=== PATIENT | male | born 1980 | race Caucasian/White ===

== ENCOUNTER 2016-08-13 16:04 | Emergency (ER) | payer OTHER ==
[2016-08-13 16:10] VITALS: TEMP 98; BMI 25.7
--- NOTE | 2016-08-13 16:24 | PDOC ---
History of Present Illness - General Chief Complaint: Pain Stated Complaint: R/O KIDNEY STONES Time Seen by Provider: 08/13/16 16:23 Past History - Past Medical History Allergies/Adverse Reactions: Allergies Allergy/AdvReac Type Severity Reaction Status Date / Time No Known Allergies Allergy Verified 08/13/16 16:06 Kidney Stones: Yes - Psycho/Social/Smoking Cessation Hx Anxiety: No Suicidal Ideation: No Smoking History: Never smoked Have you smoked in the past 12 months: No Information on smoking cessation initiated: No Hx Alcohol Use: No Drug/Substance Use Hx: No Substance Use Type: None *Physical Exam - Vital Signs Last Vital Signs Temp Pulse Resp BP Pulse Ox 98.0 F 59 L 18 153/96 100 08/13/16 16:08 08/13/16 16:08 08/13/16 16:08 08/13/16 16:08 08/13/16 16:08
--- NOTE | 2016-08-13 16:39 | PDOC ---
History of Present Illness <Zaid Klein - Last Filed: 08/13/16 21:46> - General History Source: Patient Exam Limitations: No Limitations - History of Present Illness Initial Comments: 08/13/16 17:10 The patient is a 36 year old male, with a significant past medical history of kidney stones, who presents to the emergency department complaining of approximately 3-4 months of intermittent right sided flank pain. The patient reports the pain was the worst it has ever been last night. He describes his pain last night as a burning sensation and rated it as a 10/10. The patient currently rates his pain a 4/10. He reports associated dysuria and mild urine retention, but denies hematuria, frequency, urgency, or discharge. He reports fatigue, fever, chills, nausea, and vomiting, but denies headache or dizziness. Per previous report, patient had a CT done on 08/06/16, which revealed an 11 mm proximal ureteral calculus with moderate hydronephrosis. Patient reports he was recommended a Lithotripsy procedure and prescribed medications for but does not remember the name of. He reports mild epigastric pain, but denies any diarrhea, constipation, melena, or hematochezia. He denies any chest pain, shortness of breath, diaphoresis, or palpitations. He denies any recent travel or sick contacts. Allergies: NKDA Past Surgical History: None reported Social History: Non smoker. No ETOH or drug use. PCP: Officer <Kt Koch - Last Filed: 08/13/16 22:21> - General Chief Complaint: Pain Stated Complaint: R/O KIDNEY STONES Time Seen by Provider: 08/13/16 16:23 Past History - Past Medical History Kidney Stones: Yes - Psycho/Social/Smoking Cessation Hx Anxiety: No Suicidal Ideation: No Smoking History: Never smoked Have you smoked in the past 12 months: No Information on smoking cessation initiated: No Hx Alcohol Use: No Drug/Substance Use Hx: No Substance Use Type: None <Zaid Klein - Last Filed: 08/13/16 21:46> <Kt Koch - Last Filed: 08/13/16 22:21> - Past Medical History Allergies/Adverse Reactions: Allergies Allergy/AdvReac Type Severity Reaction Status Date / Time No Known Allergies Allergy Verified 08/13/16 16:06 Home Medications: Ambulatory Orders Levofloxacin [Levaquin -] 500 mg PO DAILY #7 tablet 08/13/16 Naproxen [Naprosyn -] 500 mg PO BID 08/13/16 Oxycodone HCl/Acetaminophen [Percocet 5-325 mg Tablet] 1 tab PO Q6H #20 tablet MDD 4 08/13/16 Review of Systems - Review of Systems Able to Perform ROS?: Yes Comments:: 08/13/16 17:11 CONSTITUTIONAL: Yes: +fever, +chills, +fatigue. EYES: No visual changes ENT: No ear pain, no sore throat CARDIOVASCULAR: No chest pain, no palpitations RESPIRATORY: No cough, no SOB GI: Yes: +epigastric pain, + nausea, +vomiting. No constipation, no diarrhea, no melena, no hematochezia GENITOURINARY: Yes: +right sided flank pain, +dysuria. No frequency, no hematuria MUSKULOSKELETAL: Yes: +right sided flank pain. No joint pain, no myalgias SKIN: No rash NEURO: No headache <Kt Koch - Last Filed: 08/13/16 22:21> *Physical Exam - Vital Signs Last Vital Signs Temp Pulse Resp BP Pulse Ox 98.0 F 59 L 18 153/96 100 08/13/16 16:08 08/13/16 16:08 08/13/16 16:08 08/13/16 16:08 08/13/16 16:08 <Zaid Klein - Last Filed: 08/13/16 21:46> - Vital Signs Last Vital Signs Temp Pulse Resp BP Pulse Ox 98.0 F 59 L 18 153/96 100 08/13/16 16:08 08/13/16 16:08 08/13/16 16:08 08/13/16 16:08 08/13/16 16:08 - Physical Exam Comments: 08/13/16 16:40 CONSTITUTIONAL: Well-appearing; well-nourished; in no apparent distress HEAD: Normocephalic; atraumatic EYES: PERRL; EOM intact ENMT: External appears normal; normal oropharynx NECK: Supple; non-tender; no cervical lymphadenopathy CARD: Normal S1, S2; no murmurs, rubs, or gallops RESP: Normal chest excursion with respiration; breath sounds clear and equal bilaterally; no wheezes, rhonchi, or rales ABD: Soft, non-distended; non-tender; no palpable organomegaly, no palpable hernias BACK: +Right CVA tenderness. EXT: Normal ROM in all four extremities; non-tender to palpation; distal pulses intact SKIN: Warm, dry, no rash NEURO: No focal neurological deficiencies. <Kt Koch - Last Filed: 08/13/16 22:21> ED Treatment Course - LABORATORY CBC & Chemistry Diagram: 08/13/16 17:25 08/13/16 17:25 <Zaid Klein - Last Filed: 08/13/16 21:46> - LABORATORY CBC & Chemistry Diagram: 08/13/16 17:25 08/13/16 17:25 - RADIOLOGY Radiograph Interpretation: 08/13/16 20:19 EXAM: Renal US INTERPRETED BY: Dr. Drake REVIEWED BY: Dr. Klein IMPRESSION: The kidneys are normal in size and echogenicity. There is moderate right hydronephrosis The left renal collecting system is decompressed No renal masses or calcifications visualized in either kidney. Normal vascularity in both kidneys on color Doppler evaluation The urinary bladder was not assessed <Kt Koch - Last Filed: 08/13/16 22:21> Medical Decision Making - Medical Decision Making 08/13/16 19:10 Patient is a well-appearing 36-year-old male who presents with atraumatic right flank pain, nausea, several episodes of nonbloody nonbilious vomiting, tactile fevers, chills with associated dysuria. In the ER, patient is awake and alert, afebrile, nontoxic appearing, with mild right CVA tenderness to percussion. CBC is within normal limit without evidence of leukocytosis. CMP reveals a normal renal function. Urinalysis reveals no evidence of hematuria or pyuria at this time. Right kidney ultrasound reveals significant hydronephrosis and proximal ureteral stone. We'll consult urology. Will reassess. 08/13/16 21:47 Patient reassessed. Patient is resting comfortably, symptom-free, tolerates by mouth. CBC/CMP/UA within normal limit. There is no evidence of leukocytosis or pyuria. Patient's afebrile and normotensive. Right kidney ultrasound shows normal echogenicity and moderate hydronephrosis. A discussed the case with Dr. Carmen of urology. Given the patient is well-appearing, tolerates by mouth, is pain free, without evidence of sepsis, he can be discharged with by mouth pain meds, by mouth antibiotics and prompt outpatient follow-up for lithotripsy. I discussed the plan of care with the patient and he is expressed understanding. <Zaid Klein - Last Filed: 08/13/16 21:46> - Medical Decision Making 08/13/16 20:19 First call placed to Dr. Mcduffie at 20:19. Awaiting call back. Second call placed to Dr. Mcduffie. at 20:59. Awaiting call back. Case discussed with Dr. Mcduffie at 21:10. <Kt Koch - Last Filed: 08/13/16 22:21> *DC/Admit/Observation/Transfer - Attestations Physician Attestion: 08/13/16 19:10 The documentation was prepared by the scribe under my direct supervision. I have reviewed the documentation which correctly represents the findings, medical decision-making and critical action taken by me. <Zaid Klein - Last Filed: 08/13/16 21:46> - Attestations Scribe Attestion: 08/13/16 17:11 Documentation prepared by Kt Koch, acting as medical administrator for Zaid Klein MD. <Kt Koch - Last Filed: 08/13/16 22:21> Diagnosis at time of Disposition: Kidney stone on right side - Discharge Dispostion Disposition: HOME Condition at time of disposition: Stable - Prescriptions Prescriptions: Levofloxacin [Levaquin -] 500 mg PO DAILY #7 tablet Oxycodone HCl/Acetaminophen [Percocet 5-325 mg Tablet] 1 tab PO Q6H #20 tablet MDD 4 - Referrals Referrals: Damaso Mcduffie MD., MD [Staff Physician] - - Patient Instructions Printed Discharge Instructions: DI for Kidney Stones
[2016-08-13 16:56] LABS: URINE APPEARANCE CLEAR; URINE BILIRUBIN NEGATIVE (NEGATIVE); URINE BLOOD NEGATIVE (NEGATIVE); URINE COLOR LTYELLOW; URINE GLUCOSE (UA) NEGATIVE (NEGATIVE); URINE KETONE NEGATIVE (NEGATIVE); URINE LEUK ESTERASE NEGATIVE (NEGATIVE); URINE NITRITE NEGATIVE (NEGATIVE); URINE PROTEIN NEGATIVE (NEGATIVE); URINE UROBILINOGEN NEGATIVE E.U./dl (0.2-1.0)
[2016-08-13] MEDS ORDERED: SODIUM CHLORIDE 1,000 ML IV STA (16:58)
[2016-08-13 17:36] LABS: BASOPHIL 0.8 % (0-2.0); EOSINOPHIL 1.5 % (0-4.5); MEAN CELL VOLUME 78.1 fl (80-96); MEAN PLT VOLUME 8.3 fl (7.5-11.1); NEUTROPHILS 59.6 % (42.8-82.8); PLATELET COUNT 240 K/MM3 (134-434); RDW 13.9 % (11.9-15.9); WHITE BLOOD COUNT 5.1 K/mm3 (4.0-10.0)
[2016-08-13 17:50] LABS: INR 1.05 (0.82-1.09); PROTHROMBIN TIME (PATIENT) 11.6 SEC (9.98-11.88)
[2016-08-13 17:58] LABS: ALBUMIN 3.4 g/dl (3.4-5.0); ANION GAP 5 (8-16); BILIRUBIN,TOTAL 0.1 mg/dL (0.2-1.0); CALCIUM 8.8 mg/dL (8.5-10.1); CO2 29 mmol/L (21-32); CREATININE 1.2 mg/dL (0.7-1.3); GLUCOSE,RANDOM 96 mg/dL (74-106); SGOT/AST 24 U/L (15-37); SGPT/ALT 41 U/L (12-78); TOT PROT 6.4 g/dl (6.4-8.2)
[2016-08-13 17:59] LABS: ALK PHOS 108 U/L (45-117)
[2016-08-13 22:34] VITALS: BP 145/70; PULSE 62
== END 2016-08-13 22:31 | disposition home or self-care (01) ==
LOC: JER 16:04
PROC: 3E0337Z Introduction of Electrolytic and Water Balance Substance into Peripheral Vein, Percutaneous Approach (ICD-10-PCS; principal; 2016-08-13)
DX: N13.2 Hydronephrosis with renal and ureteral calculous obstruction (principal); Z87.442 Personal history of urinary calculi
CPT/HCPCS: 36415; 76775-TC; 80053; 81003; 85025; 85610; 87040; 87086; 96360; 99284-25